=== PATIENT | female | born 1945 | race Caucasian/White ===

== ENCOUNTER → 2018-02-10 09:39 | Outpatient (CLI) | payer MEDICARE, SELFPAY ==
--- NOTE | 2018-02-10 | DI.MG.S_ITS ---
BILATERAL DIGITAL SCREENING MAMMOGRAM 3D/2D WITH CAD: 02/10/2018 CLINICAL: Routine screening. Family history of breast cancer. Comparison is made to exams dated: 01/05/2016 mammogram, 02/01/2017 mammogram, and 10/23/2014 mammogram - [facility]. The tissue of both breasts is heterogeneously dense. This may lower the sensitivity of mammography. Current study was also evaluated with a Computer Aided Detection (CAD) system. No significant masses, calcifications, or other findings are seen in either breast. There has been no significant interval change. IMPRESSION: NEGATIVE There is no mammographic evidence of malignancy. A 1 year screening mammogram is recommended. This exam was interpreted at Station ID: [id number]. NOTE: For mammograms, a report in lay terms will be sent to the patient. Approximately 15% of breast malignancies will not be visualized mammographically. In the management of a palpable breast mass, a negative mammogram must not discourage biopsy of a clinically suspicious lesion. Electronically Signed By: Ashley minor/lul:02/13/2018 07:53:40 letter sent: Normal Exam ACR BI-RADS Category 1: Negative 3341F
== END ==
PROVIDERS: Visit Provider Physician Assistant
DX: Z12.31 Encounter for screening mammogram for malignant neoplasm of breast (principal); Z80.3 Family history of malignant neoplasm of breast
CPT/HCPCS: 77063; 77067

== ENCOUNTER → 2018-08-11 10:05 | Outpatient (CLI) | payer MEDICARE, SELFPAY ==
[2018-08-11 11:59] LABS: Alanine Aminotransferase 21 IU/L (9-52); Albumin 4.3 g/dL (3.5-5.0); Albumin Globulin Ratio 1.3 (1.0-2.8); Alkaline Phosphatase 81 U/L (38-126); Aspartate Aminotransferase 29 IU/L (14-36); BUN Creatinine Ratio 18.3 (6-22); Bilirubin Total 0.4 mg/dL (0.2-1.3); Blood Urea Nitrogen 22 mg/dL (7-17); Calcium 9.4 mg/dL (8.4-10.2); Carbon Dioxide 27 mmol/L (22-32); Chloride 104 mmol/L (98-107); Cholesterol 184 mg/dL (140-199); Estimated Glomerular Filt Rate 44.3 mL/min (>60); Globulin 3.2 g/dL (1.7-4.1); Glucose 87 mg/dL (80-110); HDL Cholesterol 72 mg/dL (40-60); HEMOLYSIS < 15 (0-50); LDL Cholesterol Calculated 96 mg/dL (<100); Potassium 4.7 mmol/L (3.4-5.1); Sodium 142 mmol/L (137-145); Total Protein 7.5 g/dL (6.3-8.2); Triglycerides 81 mg/dL (35-150)
[2018-08-11 12:25] LABS: TSH w/ Reflex to FT4 0.82 uIU/mL (0.47-4.68)
== END ==
PROVIDERS: PCP Internal Medicine; Visit Provider Internal Medicine
DX: E78.5 Hyperlipidemia, unspecified (principal); I10 Essential (primary) hypertension; N18.3 Chronic kidney disease, stage 3 (moderate)
CPT/HCPCS: 80053; 80061; 84443

== ENCOUNTER → 2019-02-06 09:57 | Outpatient (CLI) | payer MEDICARE, SELFPAY ==
[2019-02-06 11:03] LABS: Alanine Aminotransferase 20 IU/L (9-52); Albumin 4.4 g/dL (3.5-5.0); Albumin Globulin Ratio 1.4 (1.0-2.8); Alkaline Phosphatase 93 U/L (38-126); Aspartate Aminotransferase 27 IU/L (14-36); BUN Creatinine Ratio 20.8 (6-22); Bilirubin Total 0.7 mg/dL (0.2-1.3); Blood Urea Nitrogen 25 mg/dL (7-17); Calcium 9.8 mg/dL (8.4-10.2); Carbon Dioxide 29 mmol/L (22-32); Chloride 102 mmol/L (98-107); Cholesterol 193 mg/dL (140-199); Estimated Glomerular Filt Rate 44.3 mL/min (>60); Globulin 3.2 g/dL (1.7-4.1); Glucose 95 mg/dL (80-110); HDL Cholesterol 77 mg/dL (40-60); HEMOLYSIS < 15 (0-50); LDL Cholesterol Calculated 101 mg/dL (<100); Sodium 139 mmol/L (137-145); Total Protein 7.6 g/dL (6.3-8.2); Triglycerides 73 mg/dL (35-150)
== END ==
PROVIDERS: PCP Internal Medicine; Visit Provider Internal Medicine
DX: E78.5 Hyperlipidemia, unspecified (principal); I12.9 Hypertensive chronic kidney disease with stage 1 through stage 4 chronic kidney disease, or unspecified chronic kidney disease; N18.3 Chronic kidney disease, stage 3 (moderate)
CPT/HCPCS: 36415; 80053; 80061

== ENCOUNTER → 2019-02-28 08:25 | Outpatient (CLI) | payer MEDICARE, SELFPAY ==
--- NOTE | 2019-02-28 | DI.MG.S_ITS ---
BILATERAL DIGITAL SCREENING MAMMOGRAM 3D/2D WITH CAD: 02/28/2019 CLINICAL: Routine screening. Family history of breast cancer. Comparison is made to exams dated: 02/10/2018 mammogram, 02/01/2017 mammogram, and 01/05/2016 mammogram - [facility]. The tissue of both breasts is heterogeneously dense. This may lower the sensitivity of mammography. Current study was also evaluated with a Computer Aided Detection (CAD) system. No significant masses, calcifications, or other findings are seen in either breast. There has been no significant interval change. IMPRESSION: NEGATIVE There is no mammographic evidence of malignancy. A 1 year screening mammogram is recommended. This exam was interpreted at Station ID: [id number]. NOTE: For mammograms, a report in lay terms will be sent to the patient. Approximately 15% of breast malignancies will not be visualized mammographically. In the management of a palpable breast mass, a negative mammogram must not discourage biopsy of a clinically suspicious lesion. Electronically Signed By: Adrian velázquez/lul:03/01/2019 07:30:32 letter sent: Normal Exam ACR BI-RADS Category 1: Negative [id number]
== END ==
PROVIDERS: PCP Internal Medicine; Visit Provider Internal Medicine
DX: Z12.31 Encounter for screening mammogram for malignant neoplasm of breast (principal); Z80.3 Family history of malignant neoplasm of breast
CPT/HCPCS: 77063; 77067

== ENCOUNTER → 2020-03-16 08:17 | Outpatient (CLI) | payer MEDICARE, SELFPAY ==
[2020-03-16 10:19] LABS: Alanine Aminotransferase 15 IU/L (<35); Albumin 4.2 g/dL (3.5-5.0); Albumin Globulin Ratio 1.3 (1.0-2.8); Alkaline Phosphatase 90 U/L (38-126); Aspartate Aminotransferase 30 IU/L (14-36); BUN Creatinine Ratio 21.3 (6-22); Bilirubin Total 0.4 mg/dL (0.2-1.3); Blood Urea Nitrogen 27 mg/dL (7-17); Calcium 9.4 mg/dL (8.4-10.2); Carbon Dioxide 28 mmol/L (22-32); Chloride 103 mmol/L (98-107); Cholesterol 185 mg/dL (140-199); Estimated Glomerular Filt Rate 41.4 mL/min (>60); Globulin 3.2 g/dL (1.7-4.1); Glucose 82 mg/dL (80-110); HDL Cholesterol 50 mg/dL (40-60); HEMOLYSIS < 15 (0-50); LDL Cholesterol Calculated 104 mg/dL (<100); Potassium 4.8 mmol/L (3.4-5.1); Sodium 138 mmol/L (137-145); Total Protein 7.4 g/dL (6.3-8.2); Triglycerides 157 mg/dL (35-150)
== END ==
PROVIDERS: PCP Internal Medicine; Referring Provider Internal Medicine; Visit Provider Internal Medicine
DX: E78.5 Hyperlipidemia, unspecified (principal); I10 Essential (primary) hypertension; N18.3 Chronic kidney disease, stage 3 (moderate)
CPT/HCPCS: 36415; 80053; 80061

== ENCOUNTER 2020-05-09 12:21 | Emergency (ER) | payer MEDICARE, SELFPAY ==
[2020-05-09 12:43] VITALS: BP 156/74; PULSE 73; RESP 18; TEMP 36.6; O2SAT 100; BMI 24.2
--- NOTE | 2020-05-09 13:05 | DI.RAD.S_ITS ---
PROCEDURE: XR KNEE RT 3V INDICATIONS: tripped and fall, swelling to knee, -bear wt TECHNIQUE: 3 views of the knee were acquired. COMPARISON: [facility], , KNEE 3V RIGHT, 12/27/2016, 11:31. FINDINGS: Bones: No fractures or dislocations. No suspicious bony lesions. There is mild medial femorotibial joint space narrowing seen, with associated remodeling changes including subchondral sclerosis and osteophyte formation along the jointline. On the sunrise view, there is at least moderate lateral patellofemoral joint space narrowing seen. Osteophyte formation can be seen along the margins of the patella. Soft tissues: There is a moderate joint effusion. No suspicious soft tissue calcifications. IMPRESSION: No definite, displaced fracture can be seen by plain film. If there is point tenderness (or other clinical suspicion for a fracture not seen on these images) then a dedicated CT or a short-term followup plain film series could be considered for further evaluation, as clinically appropriate. Moderate joint effusion. At least moderate lateral patellofemoral joint space narrowing can be seen, with associated remodeling changes. Dictated by: Piter Garcia M.D. on 05/09/2020 at 12:26 Approved by: Piter Garcia M.D. on 05/09/2020 at 12:28
[2020-05-09] MEDS: IBUPROFEN 400 MG TABLET PO (13:24)
[2020-05-09] MEDS: ACETAMINOPHEN 325 MG TABLET 650 MG PO (13:24)
--- NOTE | 2020-05-09 14:26 | ED_ITS ---
HPI - Extremity Injury (Lower) <Davide NinaMILENA EsquivelP - Last Filed: 05/10/20 00:03> General Chief Complaint: Extremity Injury, Lower Stated Complaint: Fell, Injured Rt Knee Time Seen by Provider: 05/09/20 12:46 Source: patient Mode of arrival: Wheelchair Limitations: no limitations History of Present Illness HPI Narrative: This is a 74 year female, former smoker, who has history of meniscus surgery 3 years ago (unsure of laterality) with significant other with right knee around the patella pain after she tripped and fall to the side while planted foot to the ground about 1 hour prior to coming into ED. patient denies other injuries including head or neck. Patient denies on blood thinner. Patient reports she was not able to bear her weight and swelling around the affected knee. Patient reports intact sensation and movement distally. Related Data Home Medications Medication Instructions Recorded Confirmed diphenhydramine 25 1 tab PO BEDTIME PRN 04/03/20 04/03/20 mg-acetaminophen 500 mg tablet Previous Rx's Medication Instructions Recorded atorvastatin 20 mg tablet 20 mg PO DAILY #90 tab 04/17/20 losartan 50 mg tablet 50 mg PO DAILY #90 tab 04/17/20 Allergies Allergy/AdvReac Type Severity Reaction Status Date / Time Penicillins Allergy Intermediate Unknown. Verified 05/09/20 12:49 Sulfa (Sulfonamide Allergy Intermediate Swollen Verified 05/09/20 12:49 Antibiotics) lips Review of Systems <Davide RamirezAlvin [facility] - Last Filed: 05/10/20 00:03> Review of Systems Narrative: General: Denies fever, chills, fatigue, malaise, sweats. HEENT: Denies sinus pain, ear pain, sore throat, difficulty swallowing, dizziness. Respiratory: Denies dyspnea, cough, wheezing, hemoptysis, sputum. Cardiovascular: Denies chest pain, palpitations, orthopnea, edema. Gastrointestinal: Denies nausea, vomiting, abdominal pain, diarrhea, constipation, melena. : Denies dysuria, frequency, incontinence, hematuria, urinary retention. Musculoskeletal: HPI Skin: Denies rash, skin lesions, or other. Neurologic: Denies weakness, headache, numbness, change in speech, confusion, seizures, incoordination. Psychiatric: No concerning psychosocial issues. 12-point review of systems is negative except for those stated above. Patient History <WISAM Sawyer - Last Filed: 05/10/20 00:03> Medical History Essential hypertension (Chronic) Hx of adenomatous colonic polyps (Chronic) Hyperlipidemia (Chronic) Stage 3 chronic kidney disease (Chronic) Surgical History H/O knee surgery (Inactive) S/P tonsillectomy and adenoidectomy (Inactive) Social History Smoking Status: Former smoker Smoking Status: Former smoker alcohol intake frequency: 0-2 drinks per day Alcohol type: wine Substance Use Type: does not use Exam <WISAM Sawyer - Last Filed: 05/10/20 00:03> Narrative Exam Narrative: General appearance: well developed, well nourished, in moderate distress from pain. Head: normocephalic, atraumatic, no scalp lesions, non-tender. ENT: Hearing grossly intact. Airway patent. Neck/Thyroid: neck supple, full range of motion, no visible masses or meningeal signs. No JVD, non-tender without lymphadenopathy. Skin: no suspicious rashes, lesions over visible areas. Warm and dry and appropriate color for ethnicity. Heart: no clubbing, no cyanosis, no edema. S1 and S2 normal. RRR w/o murmurs, clicks, or bruits. Lungs: Breathing even and unlabored. No stridor. No accessory muscles used. Able to speak in full sentences. Chest: normal shape and expansion. Abdomen: non-obese, non-distended. Neurologic: alert and oriented. Cognitive exam, [employer] and PNS grossly intact on informal exam. Psych: good eye contact, normal affect. Initial Vital Signs Initial Vital Signs: Vital Signs Temperature 97.9 F 05/09/20 12:43 Pulse Rate 73 05/09/20 12:43 Respiratory Rate 18 05/09/20 12:43 Blood Pressure 156/74 H 05/09/20 12:43 Pulse Oximetry 100 05/09/20 12:43 Extrem Right lower extremity: hip/thigh Details: no tenderness and no swelling, knee Details: abnormal to inspection, tenderness, swelling Location: of the patella, abnormal ROM Details: pain with active ROM during and pain with passive ROM during, knee ligament exam abnormal Details: valgus stress test normal, varus stress test normal and Yordy's test normal and Channing's Test Details: positive medially and laterally; no abrasions, no lacerations, no ecchymosis, no crepitus and no deformity, lower leg Details: no tenderness and no localized swelling, ankle Details: no tenderness and no swelling and foot Details: normal to inspection, toes with normal ROM, no edema, vascular exam Details: dorsalis pedis pulse present and normal capillary refill and motor-sensory exam Details: light-touch normal; no tenderness <Sushma Gutierres DO - Last Filed: 05/10/20 07:07> Initial Vital Signs Initial Vital Signs: Vital Signs Temperature 97.9 F 05/09/20 12:43 Pulse Rate 73 05/09/20 12:43 Respiratory Rate 18 05/09/20 12:43 Blood Pressure 156/74 H 05/09/20 12:43 Pulse Oximetry 100 05/09/20 12:43 Procedures <WISAM Sawyer - Last Filed: 05/10/20 00:03> Orthopedic Splinting/Casting Injury #1: Side: right Lower Extremity Injury Location: knee Lower Extremity Immobilizer: knee immobilizer Other Orthopedic Equipment: crutches Post splinting neuro exam: intact Post splinting vascular exam: intact Placed by: Nursing Scores <WISAM Sawyer - Last Filed: 05/10/20 00:03> GCS Chuyita coma scale eye opening: Spontaneous Chuyita coma scale verbal response: Orientated Hester coma scale motor response: Obey commands Chuyita coma scale total score: 15 Course <WISAM Sawyer - Last Filed: 05/10/20 00:03> Orders Ordered: Discontinued Medications Acetaminophen (Tylenol) 650 mg PO NOW ONE Stop: 05/09/20 13:06 Last Admin: 05/09/20 13:24 Dose: 650 mg Documented by: YANNICK Ibuprofen (Advil) 400 mg PO NOW ONE Stop: 05/09/20 13:06 Last Admin: 05/09/20 13:24 Dose: 400 mg Documented by: YANNICK Vital Signs Vital signs: Vital Signs - 8 hr 05/09/20 12:43 Temperature 97.9 F Pulse Rate 73 Respiratory Rate 18 Blood Pressure 156/74 H Pulse Oximetry 100 <Sushma Gutierres DO - Last Filed: 05/10/20 07:07> Orders Ordered: Discontinued Medications Acetaminophen (Tylenol) 650 mg PO NOW ONE Stop: 05/09/20 13:06 Last Admin: 05/09/20 13:24 Dose: 650 mg Documented by: YANNICK Ibuprofen (Advil) 400 mg PO NOW ONE Stop: 05/09/20 13:06 Last Admin: 05/09/20 13:24 Dose: 400 mg Documented by: YANNICK Vital Signs Vital signs: Vital Signs - 8 hr 05/09/20 12:43 Temperature 97.9 F Pulse Rate 73 Respiratory Rate 18 Blood Pressure 156/74 H Pulse Oximetry 100 MDM - Extremity Injury (Lower) <WISAM Sawyer - Last Filed: 05/10/20 00:03> Differential Diagnosis Differential diagnosis: Likely acute internal derangement of knee and other (Patella fracture, knee strain) Medical Records Attestation: I reviewed the patient's medical records. Imaging Data XR-Knee RT: Radiologist's Impression: [address] [address] XRay Report Signed Patient: Kostas Navarro LMR#: [id number] : [id number]:[id number] Age/Sex: 74 / FDate of Service: 05/09/20 Loc: ED Accession Number: [id number] Procedure: XR knee RT 3V Ordering Provider: Davide Sloan PROCEDURE: XR KNEE RT 3V INDICATIONS: tripped and fall, swelling to knee, -bear wt TECHNIQUE: 3 views of the knee were acquired. COMPARISON: [facility], , KNEE 3V RIGHT, 12/27/2016, 11:31. FINDINGS: Bones: No fractures or dislocations. No suspicious bony lesions. There is mild medial femorotibial joint space narrowing seen, with associated remodeling changes including subchondral sclerosis and osteophyte formation along the jointline. On the sunrise view, there is at least moderate lateral patellofemoral joint space narrowing seen. Osteophyte formation can be seen along the margins of the patella. Soft tissues: There is a moderate joint effusion. No suspicious soft tissue calcifications. IMPRESSION: No definite, displaced fracture can be seen by plain film. If there is point tenderness (or other clinical suspicion for a fracture not seen on these images) then a dedicated CT or a short-term followup plain film series could be considered for further evaluation, as clinically appropriate. Moderate joint effusion. At least moderate lateral patellofemoral joint space narrowing can be seen, with associated remodeling changes. Dictated by: Piter Garcia M.D. on 05/09/2020 at 12:26 Approved by: Piter Garcia M.D. on 05/09/2020 at 12:28 [facility] Narrative Medical decision making narrative: According to x-ray test no fracture or dislocation with moderate joint effusion appreciated. There is a moderate lateral patella femoral joint space narrowing with associated remodeling changes seen in x-ray test. Affected leg was splinted with knee immobilize and patient provided with crutch with teaching since patient was not able to bear weight. Patient medicated with Tylenol and Motrin while in ED and cool pack on affected site for pain which improved pain. Advised Rice therapy and advised to use OTC Tylenol and or Motrin as needed. Patient advised to follow-up with [facility] orthopedist pain persists for further evaluation and possible advanced imaging test. Patient verbalized understanding and agreement with the treatment plan. Discharge Plan Departure Patient Disposition: Home Clinical Impression: Knee pain, right anterior, Effusion of knee joint right Discharge Date/Time: 05/09/20 14:55 Instructions: How to Use Crutches, DI for Knee Effusion, DI for Knee Pain Activity Restrictions/Additional Instructions: You have been diagnosed with [right knee injury and pain. According to x-ray test no definite displaced fracture was seen. There is moderate joint effusion appreciated. Affected need has been placed on knee immobilizer and crutch was provided with teaching.]. What to do: *Take your medications as directed. Please take [id number] Tylenol and or Motrin as needed for discomfort. Tylenol 650-1000 mg up to 3 to 4 times a day as needed for discomfort. Ibuprofen/Motrin 400 mg up to 3 to 4 times a day as needed for pain with food to decrease GI irritation. Please use knee immobilizer and use crutches for weight-bearing as needed. Please elevate affected knee during rest and use cool pack for next couple of days frequently on affected knee for swelling and pain. *Follow up with your primary care provider in 2-3 days, orthopedic office and call for an appointment. Let them know you were seen in the ED and that we asked you to be seen in follow up. *Return to ED if you have any new, worsening, or concerning symptoms, such as [tingling/numbness/weakness to affected leg, chest pain, breathing difficulty, unable to tolerate fluids, fever or any acute concerns]. Prescriptions: No Action atorvastatin 20 mg tablet 20 mg PO DAILY Qty: 90 RF: 3 losartan 50 mg tablet 50 mg PO DAILY Qty: 90 RF: 3 diphenhydramine-acetaminophen [Tylenol PM Extra Strength] 25-500 mg tablet 1 tab PO BEDTIME PRNRF: 0 Referrals: [facility] [Provider Group] Jose A Rosas MD [Primary Care Provider] - <Sushma Gutierres DO - Last Filed: 05/10/20 07:07> Cosign ED Attending Erikature Attestation: I was immediately available in the department for consultation. Documentation has been reviewed. I agree with assessment and plan.
[2020-05-09 15:03] VITALS: BP 157/79; PULSE 79; RESP 18; TEMP 36.9; O2SAT 98
== END 2020-05-09 14:55 | disposition home or self-care (01) ==
PROVIDERS: Emergency Provider Nurse Practitioner Family; PCP Internal Medicine
DX: M25.461 Effusion, right knee (principal); M25.561 Pain in right knee; W01.0XXA Fall on same level from slipping, tripping and stumbling without subsequent striking against object, initial encounter
CPT/HCPCS: 73562; 99283; 99284

== ENCOUNTER → 2020-06-21 14:14 | Outpatient (CLI) | payer MEDICARE, SELFPAY ==
[2020-06-22 07:44] LABS: COVID19 Sendout Not Detected (Not Detect)
== END ==
PROVIDERS: PCP Internal Medicine; Visit Provider Family Medicine
DX: Z11.59 Encounter for screening for other viral diseases (principal)
CPT/HCPCS: 87635

== ENCOUNTER 2020-06-24 12:54 | Day surgery (SDC) | payer MEDICARE, SELFPAY ==
--- NOTE | 2020-06-22 18:33 | PM.PREOP ---
Pre-operative Note COVID-19 COVID-19 status: Negative Interval Note History & Physical reviewed/Exam performed by Physician: Yes Changes to H&P: No
--- NOTE | 2020-06-22 18:34 | P.OP_ITS ---
Operative Date/Time/Diagnoses Date of procedure: 06/24/20 Time of procedure: 14:15 Procedure & Clinicians Procedure: Preoperative diagnoses: 1. Right nuclear sclerotic and cortical cataract. 2. Hypertension 3. Dry eye syndrome Postoperative diagnoses: 1. Cataract removed by phacoemulsification with placement of posterior chamber intraocular lens. Procedure: Phacoemulsification with posterior chamber intraocular lens implant Surgeon: Judy Maciel MD Complications: None Specimen: None Implant: ZCBOO+19.0 Blood loss: None Anesthesia: Retrobulbar with monitored standby Description of procedure: Patient presents with a complaint of decreased vision due to cataract which is affecting activities of daily living distance and near. The patient wants surgery to improve vision. The patient was taken to the operating room and given IV sedation. A retrobulbar block consisting of 6 cc of 2% xylocaine without epinephrine mixed half and half with 0.5% Marcaine with 1 cc of hyaluronidase added is placed between the medial and lateral 1/3 of the inferior orbital rim. The eye is manually massaged for 30 sec, prepped using Betadine solution, and draped in the usual sterile fashion. Temporal approach was made, a 1 mm side-port incision was made 90? from the proposed clear corneal incision position. Phenylephrine 1.5% mixed with 1% xylocaine 0.2 cc was placed into the anterior chamber. Viscoat followed by Tristian was then placed. A 2.6 mm clear incision with a 2.6 mm blade was placed. A 360 degree capsulorrhexis style capsulotomy was then performed with a cystitome needle on a Healon. Hydrodelineation and hydrodissection were perfo rmed. The phacoemulsification unit is introduced, and sculpting notice used to groove the central lens. It is then removed in chopping mode. Epi nucleus is removed with epinuclear mode and irrigation aspiration was used to remove the peripheral cortex. The posterior capsule is polished. The intraocular lens is selected, inspected, power confirmed, and placed in the posterior chamber. The wound was stromally hydrated and tested for leaks, there was none and it was left sutureless. Vigamox 0.1 cc was placed into the anterior chamber. Kenalog 0.2 cc was placed in the superior subconjunctival space. A drop of antibiotic and was placed and the eye was patched and shielded. The patient was stable and returned to the recovery room in excellent condition. Dictated by: Judy Maciel MD Copy to: [facility] Same procedure as scheduled: Yes
[2020-06-24] MEDS: PROPARACAINE 0.5% OPHTH SOL 2 DROPS EYE-OP (13:25)
[2020-06-24] MEDS: CATARACT EYE COMPOUND (10 DROPS/SYRINGE) 3 DROPS EYE-OP (13:25)
[2020-06-24 13:28] VITALS: BP 158/83; PULSE 68; RESP 16; TEMP 36.6; O2SAT 100; BMI 20.2
[2020-06-24] MEDS: LIDOCAINE 2% 4 ML, BUPIVACAINE 0.5% (PF) 4 ML, HYALURONIDASE 150 UNIT INJ (14:38)
[2020-06-24] MEDS: HYALURONATE SODIUM 10 MG/ML SYRINGE INJ (14:50)
[2020-06-24] MEDS: MOXIFLOXACIN INJ 5 MG/ML VIAL EYE-OP (14:50)
[2020-06-24] MEDS: ERYTHROMYCIN OPHTH 1 GM OINT 1 APPLIC EYE-RIGHT (14:50)
[2020-06-24] MEDS: CHONDROIDTIN/SOD HYALURONATE 1.05 ML SYRINGE INTRAOCULA (14:50)
[2020-06-24] MEDS: PHENYLEPHRINE/LIDOCAINE VIAL (OR) 0.2 ML EYE-OP (14:51)
[2020-06-24] MEDS: TRIAMCINOLONE 50 MG/5 ML VIAL INJ (14:51)
[2020-06-24] MEDS: BALANCED SALT IRRIG SOLN NO.2 500 ML, EPINEPHrine 1 MG IRR (14:53)
[2020-06-24 15:19] VITALS: BP 140/81; PULSE 66; RESP 16; TEMP 35.8; O2SAT 97
== END 2020-06-24 15:23 | disposition home or self-care (01) ==
PROVIDERS: PCP Internal Medicine; Referring Provider Ophthalmology; Visit Provider Ophthalmology
PROC: (CPT 66984; principal; 2020-06-24 14:15)
DX: H25.11 Age-related nuclear cataract, right eye (principal); I10 Essential (primary) hypertension; H04.129 Dry eye syndrome of unspecified lacrimal gland
CPT/HCPCS: 66984; J0171; J2250; J3010; J3301; J3470

== ENCOUNTER → 2020-07-05 15:03 | Outpatient (CLI) | payer MEDICARE, SELFPAY ==
[2020-07-06 15:14] LABS: COVID19 Sendout Not Detected (Not Detect)
== END ==
PROVIDERS: PCP Internal Medicine; Visit Provider Physician Assistant
DX: Z01.812 Encounter for preprocedural laboratory examination (principal)
CPT/HCPCS: 87635

== ENCOUNTER 2020-07-08 12:23 | Day surgery (SDC) | payer MEDICARE, SELFPAY ==
--- NOTE | 2020-07-07 17:42 | PM.PREOP ---
Pre-operative Note COVID-19 COVID-19 status: Negative Interval Note History & Physical reviewed/Exam performed by Physician: Yes Changes to H&P: No
--- NOTE | 2020-07-08 07:52 | P.OP_ITS ---
Operative Date/Time/Diagnoses Date of procedure: 07/08/20 Procedure & Clinicians Procedure: Preoperative diagnoses: 1. Left nuclear sclerotic and cortical cataract. 2. Corneal scar 3. Hypertension Postoperative diagnoses: 1. Cataract removed by phacoemulsification with placement of posterior chamber intraocular lens. Procedure: Phacoemulsification with posterior chamber intraocular lens implant Surgeon: Judy Maciel MD Complications: None Specimen: None Implant: ZCBOO+18.0 Blood loss: None Anesthesia: Retrobulbar with monitored standby Description of procedure: Patient presents with a complaint of decreased vision due to cataract which is affecting activities of daily living. The patient wants surgery to improve vision. The patient was taken to the operating room and given IV sedation. A retrobulbar block consisting of 6 cc of 2% xylocaine without epinephrine mixed half and half with 0.5% Marcaine with 1 cc of hyaluronidase added is placed between the medial and lateral 1/3 of the inferior orbital rim. The eye is manually massaged for 30 sec, prepped using Betadine solution, and draped in the usual sterile fashion. Temporal approach was made, a 1 mm side-port incision was made 90? from the proposed clear corneal incision position. Phenylephrine 1.5% mixed with 1% xylocaine 0.2 cc was placed into the anterior chamber. Viscoat followed by Healon was then placed. A 2.6 mm clear incision with a 2.6 mm blade was placed. A 360 degree capsulorrhexis style capsulotomy was then performed with a cystitome needle on a Healon. Hydrodelineation and hydrodissection were performed. The phacoemulsification unit is introduced, and sculpting notice used to groove the central lens. It is then removed in chopping mode. Epi nucleus is removed with epinuclear mode and irrigation aspiration was used to remove the peripheral cortex. The posterior capsule is polished. The intraocular lens is selected, inspected, power confirmed, and placed in the posterior chamber. The wound was stromally hydrated and tested for leaks, there was none and it was le ft sutureless. Vigamox 0.1 cc was placed into the anterior chamber. Kenalog 0.2 cc was placed in the superior subconjunctival space. A drop of antibiotic and was placed and the eye was patched and shielded. The patient was stable and returned to the recovery room in excellent condition. Dictated by: Judy Maciel MD Copy to: [facility] Same procedure as scheduled: Yes
[2020-07-08 13:49] VITALS: BP 134/78; PULSE 79; RESP 17; TEMP 36.2; O2SAT 99; BMI 21.6
[2020-07-08] MEDS: CATARACT EYE COMPOUND (10 DROPS/SYRINGE) 3 DROPS EYE-OP (15:08)
[2020-07-08] MEDS: PROPARACAINE 0.5% OPHTH SOL 2 DROPS EYE-OP (15:08)
--- NOTE | 2020-07-08 15:45 | SUR.OPER ---
Supine on eye stretcher, head on extension cradle secured with tape. Arms tucked at sides with blanket. Pillow under knees.
[2020-07-08] MEDS: LIDOCAINE 2% 4 ML, BUPIVACAINE 0.5% (PF) 4 ML, HYALURONIDASE 150 UNIT INJ (16:18)
[2020-07-08] MEDS: BALANCED SALT IRRIG SOLN NO.2 500 ML, EPINEPHrine 1 MG IRR (16:19)
[2020-07-08] MEDS: HYALURONATE SODIUM 10 MG/ML SYRINGE INJ (16:20)
[2020-07-08] MEDS: ERYTHROMYCIN OPHTH 1 GM OINT 1 APPLIC EYE-LEFT (16:20)
[2020-07-08] MEDS: CHONDROIDTIN/SOD HYALURONATE 1.05 ML SYRINGE INTRAOCULA (16:20)
[2020-07-08] MEDS: TRIAMCINOLONE 50 MG/5 ML VIAL INJ (16:21)
[2020-07-08] MEDS: MOXIFLOXACIN INJ 5 MG/ML VIAL EYE-OP (16:21)
[2020-07-08] MEDS: PHENYLEPHRINE/LIDOCAINE VIAL (OR) 0.2 ML EYE-OP (16:22)
[2020-07-08 16:35] VITALS: BP 155/88; PULSE 66; RESP 14; TEMP 36.1; O2SAT 97
== END 2020-07-08 16:59 | disposition home or self-care (01) ==
LOC: OR 12:26
PROVIDERS: PCP Internal Medicine; Referring Provider Internal Medicine; Visit Provider Ophthalmology
PROC: (CPT 66984; principal; 2020-07-08 13:15)
DX: H25.12 Age-related nuclear cataract, left eye (principal); H25.012 Cortical age-related cataract, left eye; H17.9 Unspecified corneal scar and opacity; I12.9 Hypertensive chronic kidney disease with stage 1 through stage 4 chronic kidney disease, or unspecified chronic kidney disease; N18.30 Chronic kidney disease, stage 3 unspecified; E78.5 Hyperlipidemia, unspecified; Z87.891 Personal history of nicotine dependence; Z96.1 Presence of intraocular lens
CPT/HCPCS: 66984; J0171; J2250; J2704; J3010; J3301; J3470

== ENCOUNTER → 2020-08-06 09:30 | Outpatient (CLI) | payer MEDICARE, SELFPAY ==
[2020-08-06 10:50] LABS: COVID19 -Nasal RAPID Negative (Negative)
== END ==
PROVIDERS: PCP Internal Medicine; Referring Provider Surgery; Visit Provider Surgery
DX: Z11.59 Encounter for screening for other viral diseases (principal); Z01.812 Encounter for preprocedural laboratory examination
CPT/HCPCS: 87635; C9803

== ENCOUNTER 2020-08-07 09:00 | Day surgery (SDC) | payer MEDICARE, SELFPAY ==
[2020-08-07] VITALS (10 sets, daily range): BP systolic 90–116; BP diastolic 55–70; PULSE 64–98; RESP 10–16; TEMP 36.1–36.3; O2SAT 97–100; BMI 21.2
--- NOTE | 2020-08-07 | PATH_ITS ---
[facility] Accession Number: [id number] . 01 Material submitted: . rectum - 20 CM RECTAL POLYP . 02 Diagnosis: Rectal Polyp at 20 cm, Biopsy: Hyperplastic polyp. MRV 08/11/2020 0941 Local . 02 Electronically signed: . Arpan Grossman MD, PhD, Pathologist NPI- [id number] . 01 Gross description: . 20 CM RECTAL POLYP: Received in formalin is 1 fragment(s) of snowden, soft tissue measuring 0.4 x 0.3 x 0.2 cm submitted entirely in 1 cassette(s) /QBJ 08/08/2020 0758 Local . 02 Pathologist provided ICD-10: K62.1 . 02 CPT . 057301 Performed at: 01 [facility] [address] [place] [address], [place], [place] [id number] MD Adrian San MD Phone: [phone] Performed at: 02 [facility] [address] [place], [place] [id number] MD Shena Myrick MD Phone: [phone]
[2020-08-07] MEDS: SODIUM CHLORIDE 0.9% 1,000 ML 200 ML IV (09:49)
--- NOTE | 2020-08-07 10:59 | P.HP_ITS ---
History of Present Illness History of Present Illness Date Patient Seen: 08/07/20 Time Patient Seen: 10:59 Chief complaint: [facility] Narrative: This is a 75-year-old woman who is here for a surveillance colonoscopy. She has a personal history of colon polyps. She denies any new symptoms since her last colonoscopy 6 years ago. She denies melena, hematochezia, unexplained abdominal pain, unexplained weight loss. She says she is otherwise quite healthy, denies any cardiac symptoms or history. ROS positive for cough, arthritis, Thirteen system review is otherwise negative other than as mentioned below and in HPI. PE: GENERAL: Well groomed and cooperative. Appears stated age. Answers questions promptly and appropriately. Vital signs noted. HENT: Normocephalic, atraumatic. Hearing intact. EYES: Conjunctiva pink, sclera white, no periorbital swelling. CARDIOVASCULAR: Regular rate. No pedal edema. RESPIRATORY: Non-tachypneic, breathing comfortably on room air. GASTROINTESTINAL: Abdomen soft and non-distended GENITALURINARY: No flank tenderness. MUSCULOSKELETAL: Equal tone and mass bilaterally. SKIN: Warm, dry, soft, appropriate color for ethnicity. No other lesions, rashes, or wounds. NEURO: Alert and Oriented X 3. No gross sensory deficits, or cognitive issues. PSYCH: Appropriate affect and mood. Patient History Medical History Essential hypertension Hx of adenomatous colonic polyps Hyperlipidemia Stage 3 chronic kidney disease Surgical History H/O knee surgery S/P tonsillectomy and adenoidectomy Family & Social History Social History: household members spouse Tobacco & Substance use: Smoking Status Former smoker alcohol intake current alcohol intake frequency 0-2 drinks per day Substance Use Type does not use Meds Home Medications and Allergies Home Medications Medication Instructions Recorded Confirmed Type diphenhydramine 25 1 tab PO BEDTIME PRN 04/03/20 08/07/20 History mg-acetaminophen 500 mg tablet atorvastatin 20 mg tablet 20 mg PO DAILY #90 tab 04/17/20 08/07/20 Rx losartan 50 mg tablet 50 mg PO DAILY #90 tab 04/17/20 08/07/20 Rx Allergies Allergy/AdvReac Type Severity Reaction Status Date / Time Sulfa (Sulfonamide Allergy Severe Swelling Verified 07/07/20 08:36 Antibiotics) of Lip/Tongue/Throat Penicillins Allergy Intermediate childhood Verified 07/08/20 13:46 Exam Vital Signs (past 8 hours): - 08/07/20 09:23 Temperature 97.4 F L Pulse Rate 70 Respiratory Rate 16 Blood Pressure 113/68 Pulse Oximetry 100 Oxygen Delivery Method Room Air Assessment & Plan Assessment and plan (1) Hx of adenomatous colonic polyps: Status: Chronic Assessment & Plan narrative: Risks and benefits of screening colonoscopy and possible polypectomy were discussed with the patient including risk of bleeding, perforation, need for additional procedures, risks of anesthesia. The patient desires to proceed with the colonoscopy procedure. COVID-19 COVID-19 status: Negative Result date/Date tested (Pos, Neg/Pending): 08/06/20 Time Spent With Patient Time with patient: 15-24 minutes Quality VTE Deep Vein Thrombosis/Pulmonary Embolism Present on Admission: No
--- NOTE | 2020-08-07 11:01 | P.OP.ENDO_ITS ---
Operative Date/Time/Diagnoses Date of procedure: 08/07/20 Time of procedure: 11:01 Pre-op diagnosis: Personal history of colon polyps Post-op diagnosis: other (Single polyp at 20 cm in the rectum) Procedure & Clinicians Study performed: Colonoscopy Procedural sedation performed by the endoscopist Polypectomy with cold forceps Same procedure as scheduled: Yes Indications: Personal history of colon polyps Surgeon: Sonal Gutierres Procedure Notes SCOAP/Timeout: Performed Procedure in detail: The patient was brought to the room and placed in left lateral decubitus position with all bony prominences padded. A time-out was performed and then the patient was given procedural sedation starting with 4 mg of Versed and 100 mcg of fentanyl. A total of 7 mg of Versed and 150 micro g of fentanyl were given for the entire procedure. Vitals were monitored throughout the procedure and remained stable. Once adequately sedated, the procedure was begun. A rectal exam was performed revealing no abnormalities. The colonoscope was then introduced to the rectum and advanced to the cecum in the usual fashion. The cecum was identified by the appendiceal orifice, the mucosal tri- fold, and the ileocecal valve. The scope was then retracted while rotating side to side and examining each mucosal fold. A single small benign-appearing polyp was found at 20 cm in the rectum. He was removed with cold forceps. At the conclusion of the procedure retroflexion was performed and small grade 1-2 internal hemorrhoids without stigmata of bleeding were seen. The scope was then withdrawn from the rectum the procedure was concluded. The patient tolerated the procedure well and was transferred to the PACU in stable condition. Scope withdrawal time: 8 Sedation minutes: 21 Findings: polyp Specimen(s): other (Small Polyp from 20 cm in the rectum) Complications: none Impression: Single tiny polyp. Post-procedure Recommendations: Other recommendation (Repeat colonoscopy in 7 years due to history of colon polyps and 1 small polyp found today. Will send a letter with biopsy results.) Follow up: as needed Disposition: PACU
[2020-08-07] MEDS: fentaNYL 250 MCG/5 ML INJ IV (11:09)
[2020-08-07] MEDS: MIDAZOLAM 5 MG/5 ML VIAL IV (11:20)
--- NOTE | 2020-08-07 12:03 | SUR.PHASEI ---
Stable, drinking water, denies discomfort.
--- NOTE | 2020-08-07 12:30 | SUR.PHASEII ---
called, d/c instructions discussed, voiced an understanding. Pt left when ready and left in stable condition.
== END 2020-08-07 12:31 | disposition home or self-care (01) ==
PROVIDERS: PCP Internal Medicine; Referring Provider Surgery; Visit Provider Surgery
PROC: 0DJD8ZZ Inspection of Lower Intestinal Tract, Via Natural or Artificial Opening Endoscopic (ICD-10-PCS; CPT 45378; principal; 2020-08-07 10:00)
DX: Z12.11 Encounter for screening for malignant neoplasm of colon (principal); Z86.010 Personal history of colon polyps; E78.5 Hyperlipidemia, unspecified; I12.9 Hypertensive chronic kidney disease with stage 1 through stage 4 chronic kidney disease, or unspecified chronic kidney disease; N18.30 Chronic kidney disease, stage 3 unspecified; K64.0 First degree hemorrhoids; K62.1 Rectal polyp
CPT/HCPCS: 45380; 99152; J2250; J3010

== ENCOUNTER → 2022-01-17 12:05 | Outpatient (CLI) | payer MEDICARE, SELFPAY ==
--- NOTE | 2022-01-17 12:08 | DI.MRI.S_ITS ---
PROCEDURE: MR CERVICAL SPINE WO CON INDICATIONS: Spinal stenosis, cervical region TECHNIQUE: Noncontrast sagittal T1 spin echo and T2 fast spin echo, sagittal STIR, foraminal oblique sagittal T2 fast spin echo, and axial gradient echo or T2 fast spin echo through the cervical spine. COMPARISON: [facility] [place], CR, XR CERVICAL SPINE WITH OBLIQUES, 01/04/2022, 13:45. FINDINGS: Image quality: Motion is present on multiple sequences, limiting areas of fine detail evaluation. Alignment and Curvature: There is trace retrolisthesis C4 on C5. Bone Marrow: Marrow demonstrates normal overall signal. Spinal Cord: Visualized spinal cord has normal size and signal. No cerebellar tonsillar herniation. Paraspinous Soft Tissues: No paravertebral masses. Prevertebral soft tissues are normal in thickness. Discs: Moderate to severe multilevel disc desiccation is present. C2-C3: Minimal disc bulge without spinal stenosis or foraminal narrowing. Minimal uncovertebral hypertrophy. C3-C4: Mild disc bulge with slight effacement of the anterior thecal sac. Moderate bilateral foraminal narrowing with uncovertebral hypertrophy. C4-C5: Mild disc bulge without spinal stenosis. Moderate to severe left and moderate right foraminal narrowing with uncovertebral hypertrophy. C5-C6: Mild disc bulge with slight posterior right paracentral protrusion. Mild spinal stenosis. Moderate to severe right and moderate left foraminal narrowing with uncovertebral hypertrophy. C6-C7: Mild disc bulge without spinal stenosis. Moderate to severe bilateral foraminal narrowing with uncovertebral hypertrophy. C7-T1: No disc bulge, spinal stenosis or foraminal narrowing. IMPRESSION: Multilevel disc bulges. Moderate to severe multilevel foraminal narrowing secondary to uncovertebral arthropathy. Mild spinal stenosis at C5-6 secondary to disc bulge. Dictated by: Rozina Collins M.D. on 01/17/2022 at 13:35 Approved by: Rozina Collins M.D. on 01/17/2022 at 13:42
== END ==
PROVIDERS: PCP Internal Medicine; Referring Provider Physical Medicine & Rehabilitation Pain Medicine; Visit Provider Physical Medicine & Rehabilitation Pain Medicine
DX: M48.02 Spinal stenosis, cervical region (principal); M50.21 Other cervical disc displacement, high cervical region; M47.812 Spondylosis without myelopathy or radiculopathy, cervical region
CPT/HCPCS: 72141

== ENCOUNTER → 2022-03-31 09:01 | Outpatient (CLI) | payer MEDICARE, SELFPAY ==
[2022-03-31 11:02] LABS: Alanine Aminotransferase 14 IU/L (<35); Albumin 3.9 g/dL (3.5-5.0); Albumin Globulin Ratio 1.4 (1.0-2.8); Alkaline Phosphatase 79 U/L (38-126); Aspartate Aminotransferase 28 IU/L (14-36); BUN Creatinine Ratio 18.7 (6-22); Bilirubin Total 0.5 mg/dL (0.2-1.3); Blood Urea Nitrogen 23 mg/dL (7-17); Calcium 8.9 mg/dL (8.4-10.2); Carbon Dioxide 27 mmol/L (22-32); Chloride 104 mmol/L (98-107); Cholesterol 171 mg/dL (140-199); Estimated Glomerular Filt Rate 46 mL/min (>60); Globulin 2.8 g/dL (1.7-4.1); Glucose 92 mg/dL (80-110); HDL Cholesterol 56 mg/dL (40-60); HEMOLYSIS < 15 (0-50); LDL Cholesterol Calculated 91 mg/dL (<100); Potassium 4.8 mmol/L (3.4-5.1); Sodium 140 mmol/L (137-145); Total Protein 6.7 g/dL (6.3-8.2); Triglycerides 121 mg/dL (35-150)
== END ==
PROVIDERS: PCP Internal Medicine; Referring Provider Internal Medicine; Visit Provider Internal Medicine
DX: E78.5 Hyperlipidemia, unspecified (principal); I10 Essential (primary) hypertension
CPT/HCPCS: 36415; 80053; 80061

== ENCOUNTER → 2022-04-05 10:27 | Outpatient (CLI) | payer MEDICARE, SELFPAY ==
--- NOTE | 2022-04-05 10:28 | DI.MG.S_ITS ---
BILATERAL DIGITAL SCREENING MAMMOGRAM 3D/2D WITH CAD: 04/05/2022 CLINICAL: Routine screening. Family history of breast cancer. Comparison is made to exams dated: 02/28/2019 mammogram, 02/10/2018 mammogram, 02/01/2017 mammogram, 01/05/2016 mammogram, and 10/23/2014 mammogram - [facility]. The tissue of both breasts is heterogeneously dense. This may lower the sensitivity of mammography. Current study was also evaluated with a Computer Aided Detection (CAD) system. No significant masses, calcifications, or other findings are seen in either breast. There has been no significant interval change. IMPRESSION: NEGATIVE There is no mammographic evidence of malignancy. A 1 year screening mammogram is recommended. Based on the Tyrer Cuzick model (a risk assessment model) the patient's lifetime risk is 8.5% and her 10 year risk is 7.7%. According to the ACR, ACS, and NCCN guidelines, an annual breast MRI exam along with mammogram is recommended if the patient's lifetime risk is 20% or greater. This exam was interpreted at Station ID: [id number]. NOTE: For mammograms, a report in lay terms will be sent to the patient. Approximately 15% of breast malignancies will not be visualized mammographically. In the management of a palpable breast mass, a negative mammogram must not discourage biopsy of a clinically suspicious lesion. Electronically Signed By: Jose strange/lul:04/05/2022 13:10:31 letter sent: Normal Exam ACR BI-RADS Category 1: Negative 3341F
== END ==
PROVIDERS: PCP Internal Medicine; Referring Provider Internal Medicine; Visit Provider Internal Medicine
DX: Z12.31 Encounter for screening mammogram for malignant neoplasm of breast (principal); Z80.3 Family history of malignant neoplasm of breast
CPT/HCPCS: 77063; 77067

== ENCOUNTER 2022-11-06 09:13 | Emergency (ER) | payer MEDICARE, SELFPAY ==
[2022-11-06 09:33] VITALS: BP 191/111; PULSE 80; RESP 18; TEMP 36.7; O2SAT 99; BMI 20.7
--- NOTE | 2022-11-06 10:43 | ED.FALL ---
HPI - Fall General Chief Complaint: Fall Stated Complaint: stiff neck last few days, fell this morn neck Time Seen by Provider: 11/06/22 10:42 Source: patient Mode of arrival: Wheelchair History of Present Illness HPI Narrative: Patient 77-year-old female with history of spinal stenosis, hypertension presenting today with severe bilateral pain. She says that she woke up and can not move her neck. She tried to take her pills by tipping her head backwards however due to severe pain she dropped pills and water. She has no numbness tingling or weakness in her upper extremities. She previously was in physical therapy for her neck. She denies any headache but has bilateral pain up by see 1 tender to palpation. She takes atorvastatin and losartan at night and she took both of them last evening. Related Data Home Medications Medication Instructions Recorded Confirmed diphenhydramine 25 1 tab PO BEDTIME PRN Sleep 04/03/20 03/22/22 mg-acetaminophen 500 mg tablet (Tylenol PM Extra Strength) Previous Rx's Medication Instructions Recorded atorvastatin 20 mg tablet 20 mg PO DAILY #90 tabs 05/09/22 losartan 50 mg tablet 50 mg PO DAILY #90 tabs 10/04/22 hydrocodone 5 mg-acetaminophen 325 1 tab PO Q6H PRN pain #10 tabs 11/06/22 mg tablet methocarbamol 500 mg tablet 500 mg PO TID PRN muscle spasm #14 11/06/22 tabs Allergies Allergy/AdvReac Type Severity Reaction Status Date / Time Sulfa (Sulfonamide Allergy Severe Swelling Verified 11/06/22 09:40 Antibiotics) of Lip/Tongue/Throat Penicillins Allergy Intermediate childhood Verified 11/06/22 09:40 Review of Systems Review of Systems ROS Unobtainable: All systems reviewed & are unremarkable except as noted in HPI and below Patient History Medical History (Updated 11/06/22 @ 12:02 by Sushma Gutierres DO) Essential hypertension Hx of adenomatous colonic polyps Hyperlipidemia Stage 3 chronic kidney disease Surgical History H/O knee surgery S/P tonsillectomy and adenoidectomy Social History household members: spouse Smoking Status: Former smoker alcohol intake: current Smoking Status: Former smoker alcohol intake frequency: 0-2 drinks per day Alcohol type: wine Substance Use Type: does not use Exam Initial Vital Signs Initial Vital Signs: Vital Signs Temperature 98.0 F 11/06/22 09:33 Pulse Rate 80 11/06/22 09:33 Respiratory Rate 18 11/06/22 09:33 Blood Pressure 191/111 H 11/06/22 09:33 Pulse Oximetry 99 11/06/22 09:33 Oxygen Delivery Method 11/06/22 09:33 GENERAL: 77-year-old female appears slightly older than stated age thin sitting in wheelchair mild distress NECK: Significant decreased range of motion secondary to pain pain bilateral paraspinal muscles along with trapezius muscles, sending sharp shooting pains down her arms. No stenosis or bruit heard CARDIOVASCULAR: peripheral pulses in tact, cap refill <2 sec RESPIRATORY: No respiratory distress, speaks in full sentences without difficulty EXTREMITIES: Normal range of motion, no clubbing or edema. Neurovascularly intact NEUROLOGICAL: Cranial nerves II through XII grossly intact. Normal gait and speech. SKIN: Warm, dry, no petechiae, no rashes or lesions. Course Orders Ordered: Discontinued Medications Hydrocodone Bitart/Acetaminophen (Hydrocodone/Acet 5/325 Tablet) 1 tab PO NOW ONE Stop: 11/06/22 10:51 Last Admin: 11/06/22 11:00 Dose: 1 tab Documented By: LINDA Diazepam (Diazepam 5 Mg Tablet) 5 mg PO NOW ONE Stop: 11/06/22 10:51 Last Admin: 11/06/22 11:00 Dose: 5 mg Documented By: LINDA Ketorolac Tromethamine (Ketorolac 30 Mg/Ml Vial) 30 mg IM NOW ONE Stop: 11/06/22 10:51 Last Admin: 11/06/22 11:01 Dose: 30 mg Documented By: LINDA Vital Signs Vital signs: Vital Signs - 8 hr 11/06/22 12:16 Pulse Rate 79 Respiratory Rate 12 Blood Pressure 147/79 H Pulse Oximetry 99 Oxygen Delivery Method Room Air MDM - Fall MDM Narrative Medical decision making narrative: 77-year-old female history of chronic ongoing neck pain and hypertension presenting today with bilateral neck pain worse with movement and palpation. She is noted to be quite hypertensive initially. Unlikely carotid dissection there is no focal deficits, no visual changes no significant headache no cranial nerve involving. Most likely spasm since pain is reproducible with palpation. She is given Toradol [place] and Valium in the ED with some improvement. She is feeling a little bit better. She has no loss of stool or bladder. She has no weakness or numbness in her leg no sign of cauda equina. At this time highly suspect spasm. Discharge Plan Departure Patient Disposition: Home Clinical Impression: Cervical paraspinal muscle spasm Instructions: JADIEL Marroquin for Muscle Spasm Activity Restrictions/Additional Instructions: *You have been diagnosed with cervical muscle spasm *What to do: At this time recommend heat and light movement and light stretching. I hope medications help make you feel better. *Continue to take medications as directed --> SENT TO [facility] [place] 1 tablet every 6 hours if needed for severe pain Methocarbamol 500 mg every 8 hours if needed for muscle spasm Ibuprofen 600 mg every 6 hours if needed for [id number] *Follow up with your primary care provider in 2-3 days or call [phone] *Return to ER if you should have increasing pain weakness in extremities severe headache visual changes or any new, worsening or concerning symptoms CONTROLLED SUBSTANCE DISCHARGE (Narcotoic/benzodiazepine/Flexeril/Phenergan) 1. You have been prescribed narcotic medications, it does have acetaminophen/Tylenol/paracetamol in it, DO NOT TAKE MORE THAN 4,00mg in 24 hours of Tylenol. TRAMADOL DOES NOT CONTAIN TYLENOL 2. Please understand that we cannot provide further refills of narcotics, benzodiazepines or controlled substances through the ED and her pain management will need to be through your provider. 3. While on these medications you cannot drive or operate heavy machinery. 4. You cannot sign legal documents or perform any duties such as this. 5. As long as you're taking opiate pain medications he should also be taking a stool softener such as Colace, Dulcolax, MiraLAX or prune juice, to help avoid constipation. Prescriptions: New hydrocodone-acetaminophen 5-325 mg tablet 1 tab PO Q6H PRN (Reason: pain) Qty: 10 0RF methocarbamol 500 mg tablet 500 mg PO TID PRN (Reason: muscle spasm) Qty: 14 0RF No Action atorvastatin 20 mg tablet 20 mg PO DAILY Qty: 90 1RF losartan 50 mg tablet 50 mg PO DAILY Qty: 90 1RF diphenhydramine-acetaminophen [Tylenol PM Extra Strength] 25-500 mg tablet 1 tab PO BEDTIME PRN (Reason: Sleep) Rx Instructions: Takes 1/2 to 1 tab at bedtime Referrals: Jose A Rosas MD [Primary Care Provider] - Stand Alone Forms: Patient Portal/API
[2022-11-06] MEDS: HYDROCODONE/ACET 5/325 TABLET 1 TAB PO (11:00)
[2022-11-06] MEDS: diazePAM 5 MG TABLET PO (11:00)
[2022-11-06] MEDS: KETOROLAC 30 MG/ML VIAL IM (11:01)
[2022-11-06 12:16] VITALS: BP 147/79; PULSE 79; RESP 12; O2SAT 99
== END 2022-11-06 12:16 | disposition home or self-care (01) ==
PROVIDERS: Emergency Provider Emergency Medicine; PCP Internal Medicine
DX: M62.838 Other muscle spasm (principal)
CPT/HCPCS: 96372; 99283; J1885

== ENCOUNTER → 2023-07-11 09:11 | Outpatient (CLI) | payer MEDICARE, SELFPAY ==
--- NOTE | 2023-07-11 | DI.MG.S_ITS ---
BILATERAL DIGITAL SCREENING MAMMOGRAM 3D/2D WITH CAD: 07/11/2023 CLINICAL: Routine screening. Family history of breast cancer. Comparison is made to exams dated: 04/05/2022 mammogram, 02/28/2019 mammogram, and 02/10/2018 mammogram - [facility]. Both breasts are heterogeneously dense, which may obscure small masses (category c / 51-75% glandular tissue). Current study was also evaluated with a Computer Aided Detection (CAD) system. No significant masses, calcifications, or other findings are seen in either breast. There has been no significant interval change. IMPRESSION: NEGATIVE There is no mammographic evidence of malignancy. A 1 year screening mammogram is recommended. Based on the Tyrer Cuzick model (a risk assessment model) the patient's lifetime risk is 7.2% and her 10 year risk is 0.0%. According to the ACR, ACS, and NCCN guidelines, an annual breast MRI exam along with mammogram is recommended if the patient's lifetime risk is 20% or greater. This exam was interpreted at Station ID: [id number]. NOTE: For mammograms, a report in lay terms will be sent to the patient. Approximately 15% of breast malignancies will not be visualized mammographically. In the management of a palpable breast mass, a negative mammogram must not discourage biopsy of a clinically suspicious lesion. Electronically Signed By: Dl childs/lul:07/11/2023 12:43:45 letter sent: Normal Exam ACR BI-RADS Category 1: Negative 3341F
== END ==
PROVIDERS: PCP Internal Medicine; Referring Provider Internal Medicine; Visit Provider Internal Medicine
DX: Z12.31 Encounter for screening mammogram for malignant neoplasm of breast (principal); Z80.3 Family history of malignant neoplasm of breast
CPT/HCPCS: 77063; 77067

== ENCOUNTER → 2023-07-18 15:39 | Outpatient (CLI) | payer MEDICARE, SELFPAY ==
[2023-07-18 17:55] LABS: Alanine Aminotransferase 14 IU/L (<35); Albumin 4.2 g/dL (3.5-5.0); Albumin Globulin Ratio 1.2 (1.0-2.8); Alkaline Phosphatase 83 U/L (38-126); Aspartate Aminotransferase 26 IU/L (14-36); Bilirubin Total 0.3 mg/dL (0.2-1.3); Blood Urea Nitrogen 28 mg/dL (7-17); Calcium 9.7 mg/dL (8.4-10.2); Carbon Dioxide 27 mmol/L (22-32); Chloride 105 mmol/L (98-107); Estimated Glomerular Filt Rate 46 mL/min (>60); Globulin 3.6 g/dL (1.7-4.1); Glucose 81 mg/dL (80-110); HEMOLYSIS < 15 (0-50); Potassium 4.6 mmol/L (3.4-5.1); Sodium 139 mmol/L (137-145); Total Protein 7.8 g/dL (6.3-8.2)
== END ==
PROVIDERS: PCP Internal Medicine; Referring Provider Internal Medicine; Visit Provider Internal Medicine
DX: I10 Essential (primary) hypertension (principal); E78.5 Hyperlipidemia, unspecified
CPT/HCPCS: 36415; 80053

== ENCOUNTER → 2024-04-25 10:12 | Outpatient (CLI) | payer MEDICARE, SELFPAY ==
[2024-04-25 10:49] LABS: Add Manual Diff / Slide Review NO; Basophils Absolute Auto 100 /uL (0-100); Basophils Percent Auto 1.2 % (0-2); Eosinophils Absolute Auto 200 /uL (0-450); Eosinophils Percent Auto 3.6 % (2-4); Hematocrit 38.7 % (36-46); Hemoglobin 13.1 g/dL (12.0-16.0); Lymphocytes Absolute Auto 2100 /uL (1100-4500); Lymphocytes Percent Auto 35.2 % (25-40); Mean Corpuscular HGB Conc 33.7 % (30-36); Monocytes Absolute Auto 400 /uL (0-900); Monocytes Percent Auto 7.1 % (3-14); Neutrophils Absolute Auto 3100 /uL (1500-7000); Neutrophils Percent Auto 52.9 % (50-75); Platelet Count 243 X10^3/uL (150-400); Red Blood Cell Count 4.21 X10^6/uL (4.0-5.2); Red Cell Distribution Width 13.2 % (11.6-14.8); White Blood Cell Count 5.9 X10^3/uL (4.5-11.0)
[2024-04-25 11:20] LABS: Alanine Aminotransferase 19 IU/L (<35); Albumin 4.5 g/dL (3.5-5.0); Albumin Globulin Ratio 1.5 (1.0-2.8); Alkaline Phosphatase 81 U/L (38-126); Aspartate Aminotransferase 29 IU/L (14-36); BUN Creatinine Ratio 20.3 (6-22); Bilirubin Total 0.6 mg/dL (0.2-1.3); Blood Urea Nitrogen 29 mg/dL (7-17); C-Reactive Protein Quant < 0.5 mg/dL (<1.0); Calcium 9.6 mg/dL (8.4-10.2); Carbon Dioxide 26 mmol/L (22-32); Chloride 106 mmol/L (98-107); Estimated Glomerular Filt Rate 38 mL/min (>60); Ethanol (ETOH) < 10 mg/dL; Glucose 114 mg/dL (80-110); HEMOLYSIS < 15 (0-50); Potassium 4.7 mmol/L (3.4-5.1); Sodium 140 mmol/L (137-145); Total Protein 7.5 g/dL (6.3-8.2)
[2024-04-25 11:47] LABS: TSH w/ Reflex to FT4 1.23 uIU/mL (0.47-4.68)
[2024-04-25 12:06] LABS: Vitamin B12 597 pg/mL (239-931)
[2024-04-26 04:09] LABS: Homocysteine 27.8 umol/L (0.0-19.2)
[2024-04-27 16:40] LABS: Arsenic 3 ug/L (0-9); Lead, Blood 2.8 ug/dL (0.0-3.4)
== END ==
PROVIDERS: PCP Internal Medicine; Referring Provider Internal Medicine; Visit Provider Internal Medicine
DX: E78.5 Hyperlipidemia, unspecified (principal); I10 Essential (primary) hypertension; R41.89 Other symptoms and signs involving cognitive functions and awareness
CPT/HCPCS: 36415; 80053; 80320; 82175; 82607; 83090; 83655; 83825; 84443; 85025; 86140

== ENCOUNTER → 2024-09-23 10:55 | Outpatient (CLI) | payer MEDICARE, SELFPAY ==
--- NOTE | 2024-09-23 10:58 | DI.RAD.S_ITS ---
PROCEDURE: XR ABDOMEN MIN 2V INDICATIONS: diarrhea TECHNIQUE: 2 views of the abdomen were acquired. COMPARISON: None. FINDINGS: Surgical changes and devices: None. Bowel: No pneumoperitoneum. The bowel gas pattern is normal. Soft tissues: No masses; visualized solid organ contours appear normal in size. No suspicious abdominal calcifications. Questionable central renal stones, largest measuring 8 mm on the left and 1.6 cm on the right. Bones: No suspicious bony abnormalities. IMPRESSION: Non-obstructive bowel gas pattern. Suspected bilateral nephrolithiasis. Dictated by: Memo Nguyen M.D. on 09/23/2024 at 14:59 Approved by: Memo Nguyen M.D. on 09/23/2024 at 14:59
[2024-09-23 12:11] LABS: Add Manual Diff / Slide Review NO; Basophils Absolute Auto 100 /uL (0-100); Basophils Percent Auto 1.7 % (0-2); Eosinophils Absolute Auto 200 /uL (0-450); Eosinophils Percent Auto 4.2 % (2-4); Hematocrit 34.7 % (36-46); Hemoglobin 11.7 g/dL (12.0-16.0); Lymphocytes Absolute Auto 1600 /uL (1100-4500); Lymphocytes Percent Auto 41.6 % (25-40); Mean Corpuscular HGB Conc 33.8 % (30-36); Mean Corpuscular Hemoglobin 31.8 PG (26-34); Monocytes Absolute Auto 300 /uL (0-900); Monocytes Percent Auto 8.9 % (3-14); Neutrophils Absolute Auto 1700 /uL (1500-7000); Neutrophils Percent Auto 43.6 % (50-75); Platelet Count 221 X10^3/uL (150-400); Red Blood Cell Count 3.69 X10^6/uL (4.0-5.2); Red Cell Distribution Width 13.2 % (11.6-14.8); White Blood Cell Count 3.9 X10^3/uL (4.5-11.0)
[2024-09-23 13:06] LABS: Alanine Aminotransferase 18 IU/L (<35); Albumin 4.3 g/dL (3.5-5.0); Albumin Globulin Ratio 1.7 (1.0-2.8); Alkaline Phosphatase 72 U/L (38-126); Aspartate Aminotransferase 30 IU/L (14-36); BUN Creatinine Ratio 14.8 (6-22); Bilirubin Total 0.5 mg/dL (0.2-1.3); Blood Urea Nitrogen 20 mg/dL (7-17); C-Reactive Protein Quant < 0.5 mg/dL (<1.0); Calcium 9.8 mg/dL (8.4-10.2); Carbon Dioxide 26 mmol/L (22-32); Chloride 104 mmol/L (98-107); Estimated Glomerular Filt Rate 40 mL/min (>60); Globulin 2.6 g/dL (1.7-4.1); Glucose 99 mg/dL (80-110); HEMOLYSIS < 15 (0-50); Lipase 200 U/L (23-300); Potassium 4.8 mmol/L (3.4-5.1); Sodium 137 mmol/L (137-145); Total Protein 6.9 g/dL (6.3-8.2)
[2024-09-23 13:31] LABS: Erythrocyte Sedimentation Rate 11 MM/HR (0-20)
[2024-09-23 13:33] LABS: TSH w/ Reflex to FT4 0.82 uIU/mL (0.47-4.68)
== END ==
PROVIDERS: PCP Internal Medicine; Referring Provider Internal Medicine; Visit Provider Internal Medicine
DX: R19.7 Diarrhea, unspecified (principal); I12.9 Hypertensive chronic kidney disease with stage 1 through stage 4 chronic kidney disease, or unspecified chronic kidney disease; N18.30 Chronic kidney disease, stage 3 unspecified; D64.9 Anemia, unspecified
CPT/HCPCS: 36415; 74019; 80053; 83690; 84443; 85025; 85651; 86140

== ENCOUNTER → 2025-07-03 09:51 | Outpatient (CLI) | payer MEDICARE, SELFPAY ==
[2025-07-03 10:49] LABS: Add Manual Diff / Slide Review NO; Hematocrit 36.5 % (36-46); Hemoglobin 12.4 g/dL (12.0-16.0); Lymphocytes Absolute Auto 2900 /uL (1100-4500); Mean Corpuscular HGB Conc 34.1 % (30-36); Mean Corpuscular Hemoglobin 31.5 PG (26-34); Mean Corpuscular Volume 92.4 fL (80-100); Platelet Count 251 X10^3/uL (150-400)
[2025-07-03 11:25] LABS: Alanine Aminotransferase 20 IU/L (<35); Albumin 4.6 g/dL (3.5-5.0); Albumin Globulin Ratio 1.5 (1.0-2.8); Alkaline Phosphatase 75 U/L (38-126); Blood Urea Nitrogen 27 mg/dL (7-17); Calcium 10.1 mg/dL (8.4-10.2); Carbon Dioxide 28 mmol/L (22-32); Chloride 101 mmol/L (98-107); Estimated Glomerular Filt Rate 35 mL/min (>60); Globulin 3.0 g/dL (1.7-4.1); Glucose 112 mg/dL (70-99); HEMOLYSIS < 15 (0-50); Potassium 5.0 mmol/L (3.4-5.1); Sodium 137 mmol/L (137-145); Total Protein 7.6 g/dL (6.3-8.2)
[2025-07-03 11:39] LABS: Free T4, Direct Thyroxine 1.05 ng/dL (0.78-2.19)
[2025-07-03 11:53] LABS: Thyroid Stimulating Hormone 1.15 uIU/mL (0.47-4.68)
== END ==
PROVIDERS: PCP Internal Medicine; Referring Provider Internal Medicine; Visit Provider Internal Medicine
DX: I10 Essential (primary) hypertension (principal); E78.2 Mixed hyperlipidemia; E03.9 Hypothyroidism, unspecified; D64.9 Anemia, unspecified
CPT/HCPCS: 36415; 80053; 84439; 84443; 85025